=== PATIENT | female | born 2000 | race Caucasian/White ===

== ENCOUNTER 2024-04-06 05:54 | Emergency (ER) | payer SELFPAY ==
[2024-04-06 05:56] VITALS: BP 114/80
--- NOTE | 2024-04-06 06:20 | ED.GENMED ---
History of Present Illness
General
Chief Complaint: Medication Reaction
Source: patient
Exam Limitations: none
Time Seen by Provider: 04/06/24 06:08
History of Present Illness
History of Present Illness:
See MDM
Past History
Past History
ED Past Medical History: None
ED Past Surgical History: Other ([place] teeth)
Social History
Tobacco: Non-smoker
Alcohol: None
Phy Exam
Physical Exam
Physical Exam:
See MDM
Course
Orders/Labs/Results
Orders:
Orders
04/06/24 06:17
C DIFF [C difficile Antigen & Toxins] Urgent
MARIUSZ Source: Feces/Stool
Specimen Description:
Stool Culture Urgent
MARIUSZ Source: Feces/Stool
Specimen Description:
0.9% Sodium Chloride 1000 ml [Nss] 1,000 ml IV BOLUS
Ketorolac [Toradol] 30 mg IV NOW STA
Ondansetron Injectable [Zofran] 4 mg IV NOW STA
Test Result ONCE
04/06/24 06:23
Complete Blood Count/With Diff Urgent
Comprehensive Metabolic Panel Urgent
HCG, Serum Qualitative Screen Urgent
Lipase Urgent
04/06/24 07:27
0.9% Sodium Chloride 1000 ml [Nss] 1,000 ml IV BOLUS
Abnormal Lab Results
04/06/24
06:23
Absolute Monos (auto) 1.1 H 10^3/uL
(0.1-0.6)
Lymphocytes % 12.5 L %
(20.5-51.1)
Monocytes % 11.8 H %
(1.7-9.3)
BUN 5 L mg/dl
(7-17)
Glucose 121 H mg/dl
(70-99)
Total Protein 5.4 L g/dl
(6.3-8.2)
Albumin 3.1 L g/dl
(3.5-5.0)
04/06/24 06:23
04/06/24 06:23
Vital Signs
Initial and Last Documented VS:
Initial Vital Signs
Temp Pulse Resp BP Pulse Ox
98.2 F 96 22 114/80 98
04/06/24 05:56 04/06/24 05:56 04/06/24 05:56 04/06/24 05:56 04/06/24 05:56
Last Documented Vital Signs
Temp Pulse Resp BP Pulse Ox
98.2 F 74 17 80/54 97
04/06/24 05:56 04/06/24 06:33 04/06/24 06:33 04/06/24 08:00 04/06/24 08:00
MDM/Problems Addressed
Differential Diagnosis Includes:
HPI and MDM Narrative:
23-year-old female presenting with nausea and vomiting. Patient was started on Augmentin last week for several days of sinusitis symptoms. After 5 days of taking the medication, patient developed significant abdominal cramping, vomiting and
diarrhea. She went to urgent care and had a C. difficile study but that is still pending. Patient presents to the ER for persistent symptoms
On exam, she has a benign abdomen. Given duration of symptoms, doubt acute appendicitis. Will obtain basic blood work and provide symptomatic relief with fluids, Toradol and Zofran. Will obtain stool cultures and C. difficile if she can provide
stool send
Physical exam
General: Mildly uncomfortable
HEENT: protecting airway. Dry mucous membranes
Neck: appears supple
CV: No evidence of cyanosis
Resp: No accessory muscle use
Abd: Non-distended. Vague abdominal pain. No point tenderness
Extremities: No deformities
Neuro: alert
Psych: Normal affect
Skin: Intact
Problems Addressed including Acute and Chronic Conditions affecting care:
1. Adverse medication reaction
Acuity: acute
Prognosis: stable
Details: Likely adverse reaction rather than acute allergy. Will give IV fluids and obtain stool sample
Updates
7:30 AM for work without clinical significance. On reassessment after IV fluids and medicine, patient feeling much better. Will give second liter of fluid. Patient still unable to give stool sample
9 AM after second liter of IV fluids, patient remains well-appearing nontoxic. She still complains of mild abdominal cramping and nausea but has not had any diarrhea episodes or vomiting while here. We discussed return precautions and following up
the C. difficile culture that was obtained from urgent care few days ago
Differential Diagnosis (but not limited to): Allergic reaction, adverse medication reaction, colitis, C. difficile
Testing considered: CT abdomen/pelvis but no significant tenderness noted
Drug therapy (if applicable): OTC meds, please see d/c instruction regarding Rx drugs
Amount and/or Complexity of Data Reviewed
Clinical info obtained from: Patient
External data reviewed: N/A
Labs I independently reviewed (but not limited to): White blood cell count normal
Radiology: N/A
Pulse Ox: not hypoxic
EKG independently reviewed: N/A
Storage Worker: N/A
Critical Care: N/A
Risk of Complication:
Social Determinants of health: Good social support
Discussed with other providers: N/A
Escalation of Care includes Admit/Obs: After being observed in the Emergency Department, pt stable for discharge.
Occasional wrong word or 'sound a like' substitutions may have occurred due to the inherent limitations of voice recognition software. Read the chart carefully and recognize, using context, where substitutions have occurred.
*Critical Care Note
Total Time (30-74mins, 75-104mins- exclusive of procedures): Not Applicable
ED Attending Note
-
Portions of this chart may have been created with voice recognition software.� Occasional wrong word or��sound alike� substitutions may have occurred due to the inherent limitations of voice recognition software.
Discharge Plan
Departure
Patient Disposition: Home (Routine Discharge)
Date of Disposition: 04/06/24
Time of Disposition: 08:55
Patient with high blood pressure during this ER visit?: No
Discharge Problem:
Acute dehydration, Adverse drug interaction
Instructions: Dehydration, Adult (DC), Nausea and Vomiting, Adult (DC)
Referrals:
NONE,* [Family Provider] -
Activity Restrictions/Additional Instructions:
Please return for any worsening symptoms.
You may return at any time if you have further concerns.
Please follow up with your doctor at the first available appointment, preferably this week.
Please follow-up with the C. difficile stool culture that was obtained a few days ago.
Thank you for choosing [facility].
Interventions
Interventions:
*Risk Screen - Suicide Last Done: 04/06/24 05:56
*General Assessment Last Done: 04/06/24 06:23
*Neglect/Abuse Screening Last Done: 04/06/24 05:56
ED- Fall Risk Assessment Last Done: 04/06/24 06:32
*ED COVID-19 Vaccine History Last Done: 04/06/24 06:31
ED-Skin Assessment Last Done: 04/06/24 06:32
ED- Pulmonary Assessment Last Done: 04/06/24 06:32
FG-Hwccjz-Dywoicixja Assessment Last Done: 04/06/24 06:32
Discharge Date and Time
Print Language: [place]
[2024-04-06 06:23] VITALS: BMI 23.1
[2024-04-06] MEDS: NSS 1000 IV ×2 (06:24→07:37)
[2024-04-06] MEDS: TORADOL 30 MG IV (06:26)
[2024-04-06] MEDS: ZOFRAN 4 MG IV (06:26)
[2024-04-06 06:46] LABS: % Basophils 0.6 % (0-2); % Immature Granulocytes 0.4 % (0-0.5); % Lymphocytes 12.5 % (20.5-51.1); % Monocytes 11.8 % (1.7-9.3); % Neutrophils 69.7 % (42.2-75.2); Absolute Basophils 0.1 10^3/uL (0-0.2); Absolute Eosinophils 0.5 10^3/uL (0-0.7); Absolute Lymphocytes 1.2 10^3/uL (1.2-3.4); Absolute Monocytes 1.1 10^3/uL (0.1-0.6); Absolute Neutrophils 6.5 10^3/uL (1.4-6.5); Hematocrit 37.7 % (37.0-47.0); Hemoglobin 13.6 g/dL (12.0-16.0); Mean Corp Hgb Conc. 36.1 g/dL (33.0-37.0); Mean Corpuscular Hgb 30.3 pg (27.0-31.0); Mean Platelet Volume 10.3 fL (7.4-10.4); Nucleated Red Blood Cells % 0 %; Platelet Count 267 10^3/uL (130-400); Red Blood Cell Count 4.49 10^6/uL (4.20-5.40); White Blood Cell Count 9.4 10^3/uL (4.8-10.8)
[2024-04-06 06:54] LABS: HCG, Serum Qualitative Screen Negative
[2024-04-06 06:58] LABS: ALT (SGPT) 23 U/L (0-35); AST (SGOT) 19 U/L (14-36); Albumin 3.1 g/dl (3.5-5.0); Alkaline Phosphatase 45 U/L (38-126); Blood Urea Nitrogen 5 mg/dl (7-17); Carbon Dioxide 26 mmol/L (22-30); Chloride 101 mmol/L (98-107); Estimated Creatinine Clearance 116 ml/min; Glucose 121 mg/dl (70-99); Lipase 26 U/L (23-300); Potassium 3.8 mmol/L (3.5-5.1); Sodium 135 mmol/L (135-145); Total Bilirubin 0.5 mg/dl (0.2-1.3); Total Protein 5.4 g/dl (6.3-8.2); eGFR > 60.00
[2024-04-06 07:00] VITALS: BP 92/59
[2024-04-06 08:00] VITALS: BP 80/54
[2024-04-06 09:00] VITALS: BP 83/57
== END 2024-04-06 09:18 | disposition home or self-care (01) ==
LOC: EMR 05:54
PROVIDERS: EMERGENCY PHYSICIAN Student in an Organized Health Care Education/Training Program
DX: R11.2 Nausea with vomiting, unspecified (principal); R10.9 Unspecified abdominal pain; R19.7 Diarrhea, unspecified; T36.0X5A Adverse effect of penicillins, initial encounter; T36.1X5A Adverse effect of cephalosporins and other beta-lactam antibiotics, initial encounter; E86.0 Dehydration; Z88.1 Allergy status to other antibiotic agents
CPT/HCPCS: 99284; 96374; 96375; 96361 ×2; 80053; 83690; 84703; 85025; 87045; 87046; 87077; 87324; 87427; 87449